=== PATIENT | female | born 1980 | race Caucasian/White ===

== ENCOUNTER 2024-03-28 17:16 | Emergency (ER) | payer OTHER, SELFPAY ==
[2024-03-28 17:21] VITALS: BP 155/100; PULSE 99; RESP 16; TEMP 36.6; O2SAT 96; BMI 47.5
--- NOTE | 2024-03-28 18:02 | ED_ITS ---
HPI - Wound/Laceration 2 General: Chief Complaint: Wound/Laceration Stated Complaint: snake bite Time Seen by Provider: 03/28/24 17:35 Source: patient and family (/friend) Mode of arrival: ambulatory Limitations: no limitations History of Present Illness: Snakebite dorsal portion of right foot happens approximately 4:30 PM. Feeling some tingling swelling and mild pain. Patient does report having had a few beverages today for her holiday. Review of Systems 2 General: Reports: 10 or more systems reviewed and unremarkable except in HPI and below Physical Exam 2 Const: COMMON NORMALS: no acute distress, average body habitus, patient oriented x3, healthy appearing, alert and well nourished GENERAL APPEARANCE: well kempt and well developed HENMT: COMMON NORMALS: normocephalic, atraumatic, external ears normal and moist oral mucous membranes HEAD & SCALP: normocephalic and atraumatic E XTERNAL EAR: Yes external ears normal Eye: COMMON NORMALS: Equal, round and reactive pupils present, EOMs intact bilaterally and conjunctivae normal CONJUNCTIVA: Yes conjunctivae normal P UPIL: Yes Equal, round and reactive pupils present Neck/C-Spine: COMMON NORMALS: full ROM, no lymphadenopathy and supple Chest: CHEST: Yes Symmetrical chest wall rise and No Surgical scars present (Chest) Resp: COMMON NORMALS: normal respiratory effort, No retractions and No use of accessory muscles Cardio: COMMON NORMALS: regular rate and regular rhythm RATE: regular rate RHYTHM: regular rhythm PERIPHERAL PULSES: posterior tibial pulses present, dorsalis pedis present and other (Radial pulses 2+ and symmetric) GI: COMMON NORMALS: Soft to palpation, non-tender and no masses INSPECTION: No abdominal distension PALPATION: Yes Soft to palpation, No Guarding due to palpation present (GI) and No Rebound tenderness present : COMMON NORMALS: Yes no CVA tenderness BLADDER/KIDNEY EXAM: Yes no CVA tenderness Back/Pelvis: COMMON NORMALS: no CVA tenderness Extremity: COMMON NORMALS: normal to inspection, full ROM, capillary refill normal and no clubbing, cyanosis or edema EXTREMITY IMAGE (FRONT): 1. Dorsal portion of right foot with obvious bite aide of his neck some swelling no erythema. No ecchymosis. Neuro: COMMON NORMALS: patient oriented x3 SENSORIUM/ORIENTATION: Yes alert Psych: APPEARANCE: Yes well kempt Skin: COMMON NORMALS: no rashes or lesions noted, no wounds, turgor normal and no jaundice GENERAL SKIN EXAM: no rashes or lesions noted and turgor normal Course 2 Reevaluation(s): Reevaluation #1: No increase in swelling, no erythema. Time: 18:06 Vital Signs: Vital signs: Vital Signs Temperature 97.9 F 03/28/24 17:21 Pulse Rate 86 03/28/24 18:26 Respiratory Rate 16 03/28/24 17:21 Blood Pressure 146/94 03/28/24 18:26 Pulse Oximetry 97 03/28/24 18:26 Oxygen Delivery Me thod Room Air 03/28/24 17:21 MDM - Wound/Laceration Medical Decision Making No expanding erythema mild swelling, normal labs. Patient will be discharged home. Patient comfortable with plan. No indications for [employer]. Lab Data I reviewed the patient's lab results. 03/28/24 18:12 03/28/24 18:12 Laboratory Results WBC 8.39 10^3/uL (3.29-11.43) 03/28/24 18:12 RBC 4.80 10^6/uL (3.85-5.65) 03/28/24 18:12 Hgb 10.90 g/dL (11.27-16.99) L 03/28/24 18:12 Hct 36.5 % (36-47) 03/28/24 18:12 MCV 76.0 fl (85-98) L 03/28/24 18:12 MCH 22.7 pg (27-33) L 03/28/24 18:12 MCHC 29.9 g/dL (30-55) L 03/28/24 18:12 RDW 18.3 % (12.1-15.1) H 03/28/24 18:12 Plt Count 257 10^3/cmm (157-399) 03/28/24 18:12 MPV 10.5 fL (7.4-10.4) H 03/28/24 18:12 Neut % (Auto) 61.6 % 03/28/24 18:12 Lymph % (Auto) 29.9 % 03/28/24 18:12 Caroline % (Auto) 5.4 % 03/28/24 18:12 Eos % (Auto) 2.1 % 03/28/24 18:12 Baso % (Auto) 0.8 % 03/28/24 18:12 Neut # (Auto) 5.16 10^3/uL (1.8-7.7) 03/28/24 18:12 Lymph # (Auto) 2.5 10^3/uL (0.8-4.8) 03/28/24 18:12 Caroline # (Auto) 0.5 10^3/uL (0.2-0.9) 03/28/24 18:12 Eos # (Auto) 0.2 10^3/uL (0.0-0.8) 03/28/24 18:12 Baso # (Auto) 0.1 10^3/uL (0.0-0.1) 03/28/24 18:12 Nucleated RBC % (auto) 0 % 03/28/24 18:12 Nucleated RBCs # 0.0 /100WBC 03/28/24 18:12 PT 13.60 SECONDS (12.1-14.9) 03/28/24 18:12 INR 1.01 (0.8-1.2) 03/28/24 18:12 APTT 26.0 SECONDS (23.9-36.7) 03/28/24 18:12 Fibrinogen 356 mg/dL (174-498) 03/28/24 18:12 Sodium 137 mmol/L (136-145) 03/28/24 18:12 Potassium 3.9 mmol/L (3.5-5.1) 03/28/24 18:12 Chloride 103 mmol/L (98-107) 03/28/24 18:12 Carbon Dioxide 22 mmol/L (22-29) 03/28/24 18:12 Anion Gap 15.9 (5-19) 03/28/24 18:12 BUN 6 mg/dL (6-20) 03/28/24 18:12 Creatinine 0.7 mg/dL (0.5-0.9) 03/28/24 18:12 GFR Calculation 92.2 mL/min (90-130) 03/28/24 18:12 Glucose 89 mg/dL (65-115) 03/28/24 18:12 Calculated Osmolality 281 mOsm/kg (285-295) L 03/28/24 18:12 Calcium 8.5 mg/dL (8.5-10.5) 03/28/24 18:12 No radiology studies performed this visit Discharge Plan Discharge Patient Disposition: Home Clinical Impression: Snake bite Qualifiers: Encounter type: initial encounter Qualified Code(s): W59.11XA - Bitten by nonvenomous snake, initial encounter Condition: Stable Discharge Orders: Discharge ED (Routine); Ordered 03/28/24 Ordered By: Bob Adams Discharge Diet: Usual diet Discharge Activity: Resume usual activity Patient Instructions: Snake Bite (ED) Activity Restrictions/Additional Instructions: Please inform patient's that patient is not allowed to do any cleaning for the next 2 weeks and likely needs another roro(or drink of her choice) tonight. Coding Level of Care Code ED Inspector [employer] for [employer]
[2024-03-28 18:18] LABS: Basophils # 0.1 10^3/uL (0.0-0.1); Basophils % 0.8 %; Eosinophils # 0.2 10^3/uL (0.0-0.8); Eosinophils % 2.1 %; Hematocrit 36.5 % (36-47); Lymphocytes # 2.5 10^3/uL (0.8-4.8); Lymphocytes % 29.9 %; Mean Corpuscular HGB Conc 29.9 g/dL (30-55); Mean Corpuscular Hemoglobin 22.7 pg (27-33); Mean Platelet Volume 10.5 fL (7.4-10.4); Monocytes # 0.5 10^3/uL (0.2-0.9); Monocytes % 5.4 %; Neutrophils # 5.16 10^3/uL (1.8-7.7); Neutrophils % 61.6 %; Nucleated Red Blood Cells % 0 %; Platelet Count 257 10^3/cmm (157-399); Red Cell Distribution Width 18.3 % (12.1-15.1); White Blood Count 8.39 10^3/uL (3.29-11.43)
[2024-03-28 18:26] VITALS: BP 146/94; PULSE 86; O2SAT 97
[2024-03-28 18:36] LABS: Fibrinogen 356 mg/dL (174-498); INR 1.01 (0.8-1.2)
[2024-03-28 18:47] LABS: Anion Gap 15.9 (5-19); Blood Urea Nitrogen 6 mg/dL (6-20); Calcium 8.5 mg/dL (8.5-10.5); Carbon Dioxide 22 mmol/L (22-29); Chloride 103 mmol/L (98-107); Creatinine Clr Calc Pharmacy 128.9525; Glomerular Filtration Rate 92.2 mL/min (90-130); Glucose 89 mg/dL (65-115); Osmolality Calculated 281 mOsm/kg (285-295); Potassium 3.9 mmol/L (3.5-5.1); Sodium 137 mmol/L (136-145)
== END 2024-03-28 19:12 | disposition home or self-care (01) ==
PROVIDERS: Emergency Provider Emergency Medicine
DX: S91.351A Open bite, right foot, initial encounter (principal); W59.11XA Bitten by nonvenomous snake, initial encounter
CPT/HCPCS: 80048; 85025; 85384; 85610; 85730; 99283